=== PATIENT | female | born 1980 | race Caucasian/White ===

== ENCOUNTER 2023-02-07 14:18 | Emergency (ER) | payer OTHER, MEDICAID ==
[2023-02-07 16:58] VITALS: BP 129/82; PULSE 65
[2023-02-07] MEDS ORDERED: Ibuprofen 400 MG Tab PO ONE (17:43)
[2023-02-07] MEDS ORDERED: Acetaminophen 325 MG Tab PO ONE (17:43)
== END 2023-02-07 18:06 | disposition home or self-care (01) ==
LOC: JP.ED 14:18
DX: M54.42 Lumbago with sciatica, left side (principal); J45.909 Unspecified asthma, uncomplicated; F17.210 Nicotine dependence, cigarettes, uncomplicated
CPT/HCPCS: 99283; A9270

== ENCOUNTER 2024-08-18 05:05 | Emergency (ER) | payer OTHER ==
[2024-08-18 05:22] VITALS: BP 151/91; PULSE 93
[2024-08-18 05:22] LABS: APPEARANCE,URINE CLOUDY (CLEAR); BILIRUBIN,URINE NEGATIVE (NEGATIVE); COLOR,URINE YELLOW (YELLOW); GLUCOSE,URINE NEGATIVE (NEGATIVE); KETONES,URINE NEGATIVE (NEGATIVE); LEUKOCYTE ESTERASE,URINE MODERATE (NEGATIVE); NITRITE,URINE NEGATIVE (NEGATIVE); OCCULT BLOOD,URINE LARGE (NEGATIVE); PROTEIN,URINE 100 mg/dL (NEGATIVE); UROBILINOGEN,URINE 0.2 EU/dL (0.2-1.0)
[2024-08-18 05:27] LABS: AMORPHOUS SEDIMENT,URINE NOT SEEN; BACTERIA,URINE MANY; EPITHELIAL CELLS,URINE FEW; MUCUS,URINE NOT SEEN; WBC,URINE PACKED (0-5)
[2024-08-18] MEDS: Acetaminophen/HYDROcodone 325-10 MG Tab PO ONE (05:43)
== END 2024-08-18 05:50 | disposition home or self-care (01) ==
LOC: JP.ED 05:05
DX: N39.0 Urinary tract infection, site not specified (principal); J45.909 Unspecified asthma, uncomplicated; F17.210 Nicotine dependence, cigarettes, uncomplicated; Z86.16 Personal history of COVID-19; Z79.51 Long term (current) use of inhaled steroids; Z79.899 Other long term (current) drug therapy
CPT/HCPCS: 81001; 87086; 87088; 87186; 99283; A9270

== ENCOUNTER 2024-08-24 06:27 | Emergency (ER) | payer OTHER ==
[2024-08-24 06:38] VITALS: BP 138/83; PULSE 71
[2024-08-24] MEDS: cefTRIAXone 1 GM, Lidocaine 1% 2.1 ML IM ONE (07:35)
[2024-08-24 07:46] LABS: APPEARANCE,URINE SLIGHTLY CLOUDY (CLEAR); COLOR,URINE ORANGE (YELLOW)
[2024-08-24 07:49] LABS: AMORPHOUS SEDIMENT,URINE MANY; BACTERIA,URINE MODERATE; EPITHELIAL CELLS,URINE MODERATE; MUCUS,URINE FEW
== END 2024-08-24 08:11 | disposition home or self-care (01) ==
LOC: JP.ED 06:27
DX: N39.0 Urinary tract infection, site not specified (principal); J45.909 Unspecified asthma, uncomplicated; F17.210 Nicotine dependence, cigarettes, uncomplicated; Z86.16 Personal history of COVID-19; Z79.899 Other long term (current) drug therapy
CPT/HCPCS: 81001; 87086; 96372; 99284; J0696; 99283

== ENCOUNTER 2025-06-14 10:18 | Emergency (ER) | payer OTHER ==
[2025-06-14 10:44] VITALS: BP 138/92; PULSE 66
== END 2025-06-14 11:17 | disposition home or self-care (01) ==
LOC: JP.ED 10:18
DX: K04.7 Periapical abscess without sinus (principal); J45.909 Unspecified asthma, uncomplicated; F17.200 Nicotine dependence, unspecified, uncomplicated; Z86.16 Personal history of COVID-19; Z79.899 Other long term (current) drug therapy
CPT/HCPCS: 99282

== ENCOUNTER 2025-08-10 17:28 | Emergency (ER) | payer OTHER ==
[2025-08-10 21:13] VITALS: BP 115/83; PULSE 64
== END 2025-08-10 23:07 | disposition home or self-care (01) ==
LOC: JP.ED 17:28
DX: R07.89 Other chest pain (principal); F17.200 Nicotine dependence, unspecified, uncomplicated; J45.909 Unspecified asthma, uncomplicated; Z79.899 Other long term (current) drug therapy; Z86.16 Personal history of COVID-19
CPT/HCPCS: 36415; 84443; 84484; 93005; 93010; 99283; 99285